=== PATIENT | female | born 1990 | race Caucasian/White ===

== ENCOUNTER 2018-12-08 18:59 | Emergency (ER) | payer OTHER ==
[2018-12-08 19:14] VITALS: BP 109/59
--- NOTE | 2018-12-08 19:23 | UC ---
Eye Complaint HPI - HPI Summary HPI Summary: Pt presents with c/o right eye pain after trying to take eyelash out of eye. Pt states that right eye is painful with blinking and reports that she saw a "big bouge" on her iris after she took eyelash out. - History of Current Complaint Chief Complaint: UCEye Stated Complaint: RT EYE COMPLAINT Time Seen by Provider: 12/08/18 19:05 Hx Obtained From: Patient ?: Yes - 29 weeks Onset/Duration: Sudden Onset, Lasting Minutes, Still Present Timing: Constant Severity Initially: Moderate Severity Currently: Mild Pain Intensity: 2 Location of Injury: Other - cornea Character: Sharp, Foreign Body Sensation Aggravating Factor(s): Blinking Alleviating Factor(s): Nothing Associated Signs And Symptoms: Positive: Drainage (Clear) - Risk Factors Penetrating Injury Risk Factor: Negative Globe Rupture Risk Factors: Negative Acute Glaucoma Risk Factors: Negative Optic Artery Occlusion Risk Factors: Negative - Allergies/Home Medications Allergies/Adverse Reactions: Allergies Allergy/AdvReac Type Severity Reaction Status Date / Time amoxicillin Allergy Itching Verified 12/08/18 19:18 doxycycline Allergy Itching Verified 12/08/18 19:18 fluconazole [From Diflucan] Allergy Hives Verified 12/08/18 19:18 Home Medications: Home Medications Aspirin [Aspirin Childrens 81 MG] 81 mg PO DAILY 12/08/18 [History Confirmed ] Cholecalciferol TAB* [Vitamin D TAB*] 1,000 unit PO DAILY 12/08/18 [History Confirmed 12/08/18] Lactobacillus Acidophilus [Probiotic] 1 each PO DAILY 12/08/18 [History Confirmed 12/08/18] Omeprazole 40 mg PO DAILY 12/08/18 [History Confirmed 12/08/18] Pnv No.95/Ferrous Fum/Folic AC [ Caplet] 1 each PO DAILY 12/08/18 [ History Confirmed 12/08/18] Turmeric 400 mg PO DAILY 12/08/18 [History Confirmed 12/08/18] raNITIdine HCl [Ranitidine HCl] 75 mg PO DAILY 12/08/18 [History Confirmed 12/08] PMH/Surg Hx/FS Hx/Imm Hx Previously Healthy: Yes - Surgical History Surgical History: Yes Surgery Procedure, Year, and Place: sinus surgery in 2010 and 2016, gallbladder out 2009 - Family History Known Family History: Positive: Cardiac Disease - Social History Occupation: Employed Full-time Lives: With Family Alcohol Use: Rare Substance Use Type: None Smoking Status (MU): Heavy Every Day Tobacco Smoker Type: Cigarettes Amount Used/How Often: 3/4 pack daily Length of Time of Smoking/Using Tobacco: 11 yrs Have You Smoked in the Last Year: Yes - Immunization History Vaccination Up to Date: Yes Review of Systems All Other Systems Reviewed And Are Negative: Yes Constitutional: Positive: Negative Skin: Positive: Negative Eyes: Positive: Photophobia, Other - right eye pain ENT: Positive: Negative Respiratory: Positive: Negative Cardiovascular: Positive: Negative Gastrointestinal: Positive: Negative Genitourinary: Positive: Negative Motor: Positive: Negative Neurovascular: Positive: Negative Musculoskeletal: Positive: Negative Neurological: Positive: Negative Psychological: Positive: Negative Is Patient Immunocompromised?: No Physical Exam Triage Information Reviewed: Yes Appearance: Well-Appearing Vital Signs: Initial Vital Signs Temp 98.3 F 12/08/18 19:10 Pulse 85 12/08/18 19:10 Resp 16 12/08/18 19:10 BP 109/59 12/08/18 19:10 Pulse Ox 100 12/08/18 19:10 Vital Signs Reviewed: Yes Eyes: Positive: Conjunctiva Clear, Discharge - clear,, Other: - c/o FB senstaion ENT: Positive: Hearing grossly normal Dental Exam: Normal Respiratory: Positive: No respiratory distress Musculoskeletal Exam: Normal Neurological Exam: Normal Psychological Exam: Normal Skin Exam: Normal - multiple tattoos Eye Complaint Course/Dx - Differential Dx/Diagnosis Differential Diagnosis/HQI/PQRI: Corneal Abrasion, Foreign Body Provider Diagnosis: Acute right eye pain Discharge - Sign-Out/Discharge Documenting (check all that apply): Patient Departure All imaging exams completed and their final reports reviewed: No Studies - Discharge Plan Condition: Stable Disposition: HOME Prescriptions: Polymyx/Trimethoprim OPTH* [Polytrim OPHTH*] 2 drop RIGHT EYE Q8H 7 Days #1 btl Patient Education Materials: Eye Pain (ED) Referrals: Eliel Seo OD [Doctor of Osteopathy] - If Needed Lexa Camp MD [Primary Care Provider] - If Needed - Billing Disposition and Condition Condition: STABLE Disposition: Home
== END 2018-12-08 19:31 | disposition home or self-care (01) ==
LOC: UCCORT 18:59
DX: H57.11 Ocular pain, right eye (principal); F17.210 Nicotine dependence, cigarettes, uncomplicated
CPT/HCPCS: 99212; G0463